=== PATIENT | male | born 1945 | race Caucasian/White ===

== ENCOUNTER 2022-01-12 13:18 | Inpatient (IN) | payer MEDICARE ==
[~2022-01-12] VITALS: Ht 177.8 cm; Wt 60.8 kg
--- NOTE | 2022-01-12 13:54 | NUR ---
[facility] FOR S/P FALL +HEMATOMA RT FOREHEAD AREA. UNWITNESSD FOUND ON THE FLOOR BY STAFF. PT AAOX2, VSS. RR EVEN & UNLABORED. DENIES CP, SOB, DIZZINESS, N/V AT THIS TIME. PT SEEN & EVAL'D BY DR. GR & WILL CONT TO MONITOR.
[2022-01-12 14:00] LABS: BASOPHILS # (AUTO) 0.1 K/uL (0.0-0.2); BASOPHILS % (AUTO) 1.1 % (0.0-2.0); HEMATOCRIT 37 % (39-51); HEMOGLOBIN 11.9 g/dL (13.5-17.5); LYMPHOCYTES # (AUTO) 1.6 K/uL (0.8-4.8); LYMPHOCYTES % (AUTO) 18.8 % (20.0-44.0); MEAN CORPUSCULAR HGB CONC 33 g/dl (31.0-36.0); MEAN CORPUSCULAR VOLUME 89 fL (80-96); MONOCYTES # (AUTO) 0.9 K/uL (0.1-1.30); MONOCYTES % (AUTO) 10.3 % (2.0-12.0); NEUTROPHILS # (AUTO) 5.6 K/uL (1.8-8.9); NEUTROPHILS % (AUTO) 66.8 % (43.0-81.0); PLATELET COUNT (AUTO) 200 K/uL (150-450); RED BLOOD CELL COUNT(AUTO) 4.11 MIL/uL (4.5-6.0); WHITE BLOOD COUNT (AUTO) 8.3 K/uL (4.3-11.0)
[2022-01-12 14:44] LABS: CALCIUM, SERUM 8.5 mg/dL (8.5-10.1); CREATININE 0.8 mg/dL (0.6-1.3); POTASSIUM 3.1 mmol/L (3.5-5.1)
--- NOTE | 2022-01-12 15:54 | NUR ---
[facility] CALLED FOR TRANSPORT ETA 90 MINS.
--- NOTE | 2022-01-12 16:26 | NUR ---
RE[facility]
--- NOTE | 2022-01-12 16:31 | NUR ---
COVID SWAB DONE AND SENT TO LAB
[2022-01-12] MEDS ORDERED: ZINC220C6 PO (16:47)
[2022-01-12] MEDS ORDERED: [UNRECOGNIZED DRUG - CODE] SUBCUT (16:47)
[2022-01-12] MEDS ORDERED: AMIN887L PO (16:47)
[2022-01-12] MEDS ORDERED: MELA3TAB41 PO (16:47)
[2022-01-12] MEDS ORDERED: VANC1PLA9 IV (16:47)
[2022-01-12] MEDS ORDERED: CEFT2FRO2 IV (16:47)
[2022-01-12] MEDS ORDERED: DIVA-78 PO (16:47)
[2022-01-12] MEDS ORDERED: MULT-447 PO (16:47)
[2022-01-12] MEDS ORDERED: ASCO500C17 PO (16:47)
[2022-01-12] MEDS ORDERED: CRAN400C PO (16:47)
[2022-01-12] MEDS ORDERED: DOCU-141 PO (16:47)
[2022-01-12] MEDS ORDERED: AMLO5TAB4 PO (16:47)
[2022-01-12] MEDS ORDERED: Z GUARD REMEDY 4 OZ OINT TP PRN (18:30)
[2022-01-12] MEDS ORDERED: ONDANSETRON HCL/PF 4 MG/2 ML VIAL IVP PRN (18:30)
[2022-01-12] MEDS ORDERED: MAGNESIUM HYDROXIDE 30 ML UDC PO PRN (18:30)
[2022-01-12] MEDS ORDERED: ACETAMINOPHEN 325 MG TABLET PO PRN (18:30)
[2022-01-12] MEDS ORDERED: MAG HYDROX/AL HYDROX/SIMETH 30 ML UDC PO PRN (18:30)
--- NOTE | 2022-01-12 20:45 | NUR ---
REPORT GIVEN TO ASHANTI Galeana RN FOR DARLEEN
--- NOTE | 2022-01-12 20:57 | NUR ---
PT TRANSFERRING TO [facility]. VSS
[2022-01-12] MEDS: DIVALPROEX SODIUM 500 MG TABLET.DR PO SCH (22:14)
--- NOTE | 2022-01-12 22:54 | NUR ---
MS/TELE/RN AT 2100, RECEIVED PATIENT FROM [facility] VIA [facility]. MADE COMFORTABLE IN BED. ON ASSESSMENT, PATIENT WAS AWAKE, ALERT, ORIENTED TO PERSON ONLY, HE CAN STATE HIS NAME AND BIRTHDAY BUT UNABLE TO SAY THE PLACE WHERE HE WAS. PATIENT WAS CONFUSED STATING "I WAS NOT ABLE TO ATTEND THE [place] BECAUSE I WAS IN THE CAGE," HENCE I COULD NOT OBTAIN ADMISSION INFORMATIONS FROM THE PATIENT. PHYSICAL ASSESSMENT WAS DONE, PHOTOS WERE TAKEN ON ABNORMAL SKIN FINDINGS, CLEANED PATIENT AND MADE COMFORTABLE IN BED. TAUGHT THE USE OF CALL LIGHT AND PLACED IT WITHIN REACH, FALL PRECAUTIONS PER PROTOCOL WAS IMPLEMENT. WILL MONITOR.
[2022-01-13 00:52] VITALS: BP 104/55
--- NOTE | 2022-01-13 06:06 | NUR ---
MS/TELE/RN PATIENT IS VERY CONFUSED CONSTANTLY TRYING TO GET OUT OF BED, NOTIFIED DR. MADRID VIA SECURED MESSAGING TO GET ORDER FOR SITTER, PATIENT LYING IN BED AT THIS TIME, APPEARS SLEEPING, APPEARS COMFORTABLE, NO SIGNS OF DISTRESS NOTED, CALL LIGHT IN REACH, WILL CONTINUE TO CLOSELY MONITOR FOR SAFETY.
--- NOTE | 2022-01-13 07:30 | NUR ---
MS RN OPENING NOTES RECEIVED PATIENT AWAKE IN HIS BED COMFORTABLY. PATIENT IS CONFUSED, A/O X 1 (ONLY KNOW HIS NAME & BIRTHDAY). NO SIGNS OF DISTRESS, SOB AND DISCOMFORTED NOTED. RADHA MIDLINE & RFA 20G, PATENT & INTACT. SAFETY MEASURES INITIATED: CALL LIGHT IN REACH, BED ON LOWER POSITION. ALL NEEDS ATTENDED AT THIS TIME. WILL CONTINUE TO MONITOR FOR DARLEEN.
[2022-01-13] MEDS: DOCUSATE SODIUM 100 MG CAPSULE PO SCH (09:22)
[2022-01-13] MEDS: AMLODIPINE BESYLATE 5 MG TABLET PO SCH (09:23)
[2022-01-13 12:12] LABS: BASOPHILS # (AUTO) 0.1 K/uL (0.0-0.2); BASOPHILS % (AUTO) 0.9 % (0.0-2.0); EOSINOPHILS % (AUTO) 4.1 % (0.0-6.0); HEMATOCRIT 35 % (39-51); HEMOGLOBIN 11.7 g/dL (13.5-17.5); LYMPHOCYTES # (AUTO) 1.4 K/uL (0.8-4.8); LYMPHOCYTES % (AUTO) 20.8 % (20.0-44.0); MEAN CORPUSCULAR HGB CONC 33 g/dl (31.0-36.0); MEAN CORPUSCULAR VOLUME 89 fL (80-96); MONOCYTES % (AUTO) 14.1 % (2.0-12.0); NEUTROPHILS # (AUTO) 4.1 K/uL (1.8-8.9); NEUTROPHILS % (AUTO) 60.1 % (43.0-81.0); PLATELET COUNT (AUTO) 196 K/uL (150-450); RED BLOOD CELL COUNT(AUTO) 3.97 MIL/uL (4.5-6.0); WHITE BLOOD COUNT (AUTO) 6.7 K/uL (4.3-11.0)
[2022-01-13 12:34] LABS: CALCIUM, SERUM 8.2 mg/dL (8.5-10.1); CREATININE 0.8 mg/dL (0.6-1.3); MAGNESIUM 2.1 mg/dL (1.8-2.4); PHOSPHORUS 2.7 mg/dL (2.5-4.9); POTASSIUM 3.2 mmol/L (3.5-5.1)
[2022-01-13] MEDS: POTASSIUM CHLORIDE 20 MEQ TAB.PRT.SR PO SCH ×2 (19:03→20:39)
--- NOTE | 2022-01-13 19:36 | NUR ---
MS RN CLOSING NOTES PATIENT AWAKE IN HIS BED COMFORTABLY. PATIENT IS CONFUSED, A/O X 1 (ONLY KNOW HIS NAME & BIRTHDAY). NO SIGNS OF DISTRESS, SOB AND DISCOMFORTED NOTED. RADHA MIDLINE & RFA 20G, PATENT & INTACT. SAFETY MEASURES INITIATED: CALL LIGHT IN REACH, BED ON LOWER POSITION. ALL NEEDS ATTENDED AT THIS TIME. WILL ENDORSE TO INCOMING SHIFT FOR DARLEEN.
--- NOTE | 2022-01-13 19:40 | NUR ---
MS/RN OPENING NOTE RECEIVED PATIENT RESTING AT SIDE OF BED. 1:1 SITTER AT BEDSIDE. PATIENT IS ALERT AND ORIENTED X 1. DENIES PAIN AT THIS TIME. CONTINUES ON ROOM AIR WITH NO S/SX OF RESPIRATORY DISTRESS NOTED. IV ACCESS TO RIGHT UPPER ARM MIDLINE #18G AND RIGHT FOREARM #20G BOTH INTACT, PATENT AND SALINE LOCKED. CONTINUES ON REGULAR DIET WITH NO S/SX OF ASPIRATION NOTED. PATIENT IS AMBULATORY WITH STAND BY ASSIST. CALL LIGHT WITHIN REACH. ASPIRATION, FALL AND SAFETY PRECAUTIONS MAINTAINED. ALL NEEDS ATTENDED TO AT THIS TIME.
[2022-01-13 20:00] VITALS: BP 120/77
[2022-01-13] MEDS: DIVALPROEX SODIUM 500 MG TABLET.DR PO SCH (21:39)
--- NOTE | 2022-01-14 06:40 | NUR ---
MS/RN CLOSING NOTE PATIENT CURRENTLY RESTING IN BED. 1:1 SITTER AT BEDSIDE. PATIENT IS ALERT AND ORIENTED X 1. DENIES PAIN AT THIS TIME. CONTINUES ON ROOM AIR WITH NO S/SX OF RESPIRATORY DISTRESS NOTED. IV ACCESS TO RIGHT UPPER ARM MIDLINE #18G AND RIGHT FOREARM #20G BOTH INTACT, PATENT AND SALINE LOCKED. CONTINUES ON REGULAR DIET WITH NO S/SX OF ASPIRATION NOTED. PATIENT IS AMBULATORY WITH WALKER AND STAND BY ASSIST. CALL LIGHT WITHIN REACH. ASPIRATION, FALL AND SAFETY PRECAUTIONS MAINTAINED. ALL NEEDS ATTENDED TO AT THIS TIME. WILL ENDORSE PLAN OF CARE TO ONCOMING SHIFT RN.
--- NOTE | 2022-01-14 07:00 | NUR ---
MS RN OPENING NOTE PATIENT RESTING IN BED WITH 1:1 SITTER AT BEDSIDE. A/O X 1, TOLERATING WELL ON ROOM AIR WITH NO S/S RESPIRATORY DISTRESS OR SOB NOTED. NO COMPLAINTS OF PAIN OR DISCOMFORT AT THIS TIME. RADHA MIDLINE # 18 G SL AND R FA # 20 G SL CLEAN, INTACT, AND FLUSHING WELL. SAFETY MEASURES IN PLACE: BED IN LOWEST LOCKED POSITION, SIDE RAILS UP X 2, CALL LIGHT WITHIN REACH. WILL CONTINUE TO MONITOR.
[2022-01-14 07:21] LABS: CALCIUM, SERUM 8.7 mg/dL (8.5-10.1); CREATININE 0.9 mg/dL (0.6-1.3); POTASSIUM 4.1 mmol/L (3.5-5.1)
[2022-01-14] MEDS: DOCUSATE SODIUM 100 MG CAPSULE PO SCH (09:01)
[2022-01-14] MEDS: AMLODIPINE BESYLATE 5 MG TABLET PO SCH (09:02)
--- NOTE | 2022-01-14 19:00 | NUR ---
MS RN CLOSING NOTES PATIENT RESTING IN BED WITH 1:1 SITTER AT BEDSIDE. A/O X 1, TOLERATING WELL ON ROOM AIR WITH NO S/S RESPIRATORY DISTRESS OR SOB NOTED. NO COMPLAINTS OF PAIN OR DISCOMFORT AT THIS TIME. RADHA MIDLINE # 18 G SL AND R FA # 20 G SL CLEAN, INTACT, AND FLUSHING WELL. SAFETY MEASURES IN PLACE: BED IN LOWEST LOCKED POSITION, SIDE RAILS UP X 2, CALL LIGHT WITHIN REACH. ALL NEEDS MET. WILL ENDORSE TO ELECTRICIAN'S ASSISTANT FOR DARLEEN.
--- NOTE | 2022-01-14 19:47 | NUR ---
MS RN OPENING NOTES PATIENT RECEIVED IN BED, RESTING COMFORTABLY, WITH SITTER AT BEDSIDE; PATIENT IS CONFUSED, A/OX1, RESPONDS TO NAME; PATIENT BREATHING EVEN AND UNLABORED; TOLERATING ROOM AIR WELL, NO SOB NOTED, NO DISTRESS NOTED AT THIS TIME; RADHA MIDLINE #18 S/L AND R FA #20 S/L NOTED; SAFETY PRECAUTIONS IMPLEMENTED; BED LOCKED IN LOW POSITION; SIDE RAILSX2; WILL CONT TO MONITOR AND CONT PLAN OF CARE
[2022-01-14 20:00] VITALS: BP 140/66
[2022-01-14] MEDS: DIVALPROEX SODIUM 500 MG TABLET.DR PO SCH (21:04)
--- NOTE | 2022-01-15 03:57 | NUR ---
MS RN NOTES PATIENT AMBULATING BACK TO BED FROM RESTROOM WITH SITTER; PATIENT LOST BALANCE AND SITTER HELPED BREAK THE FALL; PATIENT FELL ON BUTTOCKS, SKIN ASSESSMENT DONE, NO WOUNDS/BRUISES NOTED; CHARGE NURSE AWARE, MADE AWARE, NURSING CRAY FISHING HAND ALSO INFORMED; INCIDENT REPORT FILED; PATIENT BACK IN BED, RESTING COMFORTABLY; WILL CONT TO MONITOR
--- NOTE | 2022-01-15 06:49 | NUR ---
MS RN CLOSING NOTES PATIENT RESTING IN BED, RESTING COMFORTABLY, WITH SITTER AT BEDSIDE; PATIENT IS CONFUSED, A/OX1, RESPONDS TO NAME; PATIENT BREATHING EVEN AND UNLABORED; TOLERATING ROOM AIR WELL, NO SOB NOTED, NO DISTRESS NOTED AT THIS TIME; RADHA MIDLINE #18 S/L AND R FA #20 S/L NOTED; ALL NEEDS RENDERED; SAFETY PRECAUTIONS IMPLEMENTED; BED LOCKED IN LOW POSITION; SIDE RAILSX2; WILL ENDORSE DARLEEN TO ONCOMING SHIFT
--- NOTE | 2022-01-15 07:55 | NUR ---
ms rn received patient on bed, sleeping, no distress noted, w/ sitter for safety and comfort,all needs attended.
--- NOTE | 2022-01-15 07:58 | NUR ---
WOUND CARE CONSULT: PT PRESENTS WITH MULTIPLE WOUNDS PRESENT ON ADMISSION INCLUDING SACRAL DEEP TISSUE INJURY (INTACT) WITH SCARRING, REDNESS TO RT LOWER LEG WITH SOME ABRASIONS, SCARS AND CALLUSES TO LOWER EXTREMITIES, SKIN TEARS TO LEFT HAND AND ARM WELL SUTURED LACERATION TO LEFT FOREHEAD WITH SURROUNDING DISCOLORATION, ALL PRESENT ON ADMISSION. RECOMMENDATIONS MADE FOR SKIN PROTECTION AND WOUND CARE. DISCUSSED WITH NURSING STAFF. SITTER AT BEDSIDE. IN AGREEMENT WITH PLAN OF CARE. Addendum: 01/15/22 at 0805 by JAZZMINE TRAVIS WNDNU Amended: Links added. Addendum: 01/15/22 at [address] TRA[address] WND[address] ALLISON AND DR LOVETT NOTIFIED OF SURGICAL AND DPM CONSULT REQUESTS.
[2022-01-15] MEDS: DOCUSATE SODIUM 100 MG CAPSULE PO SCH (09:43)
[2022-01-15 09:44] VITALS: BP 120/60
[2022-01-15] MEDS: AMLODIPINE BESYLATE 5 MG TABLET PO SCH (09:44)
--- NOTE | 2022-01-15 09:50 | NUR ---
ms rn still patient is sleeping, due meds given, tolerated well.
--- NOTE | 2022-01-15 10:00 | NUR ---
ms rn was seen by jefe flores/ buck to be discharge today,all needs attended.
--- NOTE | 2022-01-15 15:00 | NUR ---
ms saini discahrge instructions andpaper done, report given to Chandni saini at [facility].
--- NOTE | 2022-01-15 16:00 | NUR ---
ms nr patient refused to take pictures at both lower extremities.
--- NOTE | 2022-01-15 16:30 | NUR ---
ms rn patient transferred to [facility], via ambulance,all needs attended.
[2022-01-15] MEDS ORDERED: VITAMINS A AND D 56.7 GM TUBE TP SCH (17:00)
== END 2022-01-15 16:30 | DRG 604 ==
LOC: ER 13:26 → MED 20:29
PROVIDERS: ADMIT Internal Medicine; ATTEND Internal Medicine
DX: S00.83XA Contusion of other part of head, initial encounter (principal); G93.41 Metabolic encephalopathy; F07.81 Postconcussional syndrome; R29.6 Repeated falls; R62.7 Adult failure to thrive; Z20.822 Contact with and (suspected) exposure to COVID-19; I10 Essential (primary) hypertension; F29 Unspecified psychosis not due to a substance or known physiological condition; F03.90 Unspecified dementia, unspecified severity, without behavioral disturbance, psychotic disturbance, mood disturbance, and anxiety; Z89.422 Acquired absence of other left toe(s); W01.0XXA Fall on same level from slipping, tripping and stumbling without subsequent striking against object, initial encounter; Y92.9 Unspecified place or not applicable; F39 Unspecified mood [affective] disorder; Z91.018 Allergy to other foods; Z79.899 Other long term (current) drug therapy; Z79.01 Long term (current) use of anticoagulants; F25.9 Schizoaffective disorder, unspecified; D64.9 Anemia, unspecified; L30.9 Dermatitis, unspecified; L85.3 Xerosis cutis; L89.96 Pressure-induced deep tissue damage of unspecified site; M48.00 Spinal stenosis, site unspecified; E87.6 Hypokalemia; L60.3 Nail dystrophy; S51.812A Laceration without foreign body of left forearm, initial encounter; S61.412A Laceration without foreign body of left hand, initial encounter; X58.XXXA Exposure to other specified factors, initial encounter
CPT/HCPCS: 36415; 70450-TC; 72125-TC; 80048-TC; 83735-TC; 84100-TC; 85025-TC; 85730-TC; 87081-TC; 97116-TC; 97530-TC; C9803; G0378

== ENCOUNTER 2022-09-07 14:39 | Inpatient (IN) | payer MEDICARE, OTHER ==
[~2022-09-07] VITALS: Ht 177.8 cm; Wt 62.1 kg
[~2022-09-07 14:39] MED LIST: AMIN887L PO; AMLO5TAB4 PO; ASCO500C17 PO; CEFT2FRO2 IV; CRAN400C PO; DIVA-78 PO; DOCU-141 PO; MELA3TAB41 PO; MULT-447 PO; VANC1PLA9 IV; ZINC220C6 PO; [UNRECOGNIZED DRUG - CODE] SUBCUT
[2022-09-07] MEDS ORDERED: LIDOCAINE 1%-EPI 1:100,000 20 ML VIAL ONE (15:11)
[2022-09-07] MEDS ORDERED: TDAP [DIPH/PERTUSSIS/TET] 0.5 ML VIAL IM ONE ×2 (15:11→15:30)
[2022-09-07] MEDS ORDERED: LORA-258 PO (16:09)
[2022-09-07] MEDS ORDERED: MAGN400O6 PO (16:09)
[2022-09-07] MEDS ORDERED: BISA10SU11 RC (16:09)
[2022-09-07] MEDS ORDERED: DONE5TAB7 PO (16:09)
[2022-09-07] MEDS ORDERED: CHOL200013 PO (16:09)
[2022-09-07] MEDS ORDERED: ACET325T53 PO (16:09)
[2022-09-07 16:52] LABS: BASOPHILS % (AUTO) 0.4 % (0.0-2.0); EOSINOPHILS % (AUTO) 2.3 % (0.0-6.0); HEMATOCRIT 48 % (39-51); HEMOGLOBIN 15.6 g/dL (13.5-17.5); LYMPHOCYTES # (AUTO) 1.5 K/uL (0.8-4.8); LYMPHOCYTES % (AUTO) 15.2 % (20.0-44.0); MEAN CORPUSCULAR HGB CONC 32 g/dl (31.0-36.0); MEAN CORPUSCULAR VOLUME 96 fL (80-96); MONOCYTES # (AUTO) 0.9 K/uL (0.1-1.30); MONOCYTES % (AUTO) 8.6 % (2.0-12.0); NEUTROPHILS # (AUTO) 7.5 K/uL (1.8-8.9); NEUTROPHILS % (AUTO) 73.5 % (43.0-81.0); PLATELET COUNT (AUTO) 158 K/uL (150-450); RED BLOOD CELL COUNT(AUTO) 5.02 MIL/uL (4.5-6.0); WHITE BLOOD COUNT (AUTO) 10.2 K/uL (4.3-11.0)
[2022-09-07 17:31] LABS: ALANINE AMINOTRANSFERASE 23 U/L (12-78); ALKALINE PHOSPHATASE 101 U/L (46-116); BILIRUBIN,DIRECT 0.2 mg/dL (0.0-0.2); BILIRUBIN,TOTAL 0.8 mg/dL (0.2-1.0); CALCIUM, SERUM 9.4 mg/dL (8.5-10.1); CARBON DIOXIDE 28 mmol/L (21-32); CHLORIDE 120 mmol/L (98-107); CREATININE 1.1 mg/dL (0.6-1.3); GLUCOSE 101 mg/dL (74-106); POTASSIUM 4.2 mmol/L (3.5-5.1); TOTAL PROTEIN, SERUM 7.5 g/dL (6.4-8.2); UREA NITROGEN, BLOOD 44 mg/dL (7-18)
[2022-09-07 17:36] LABS: SODIUM SERUM 156 mmol/L (136-145)
[2022-09-07] MEDS ORDERED: IV NS 0.9% 1,000 ML BAG IV ONE (20:30)
[2022-09-07 21:00] VITALS: BP 121/64
[2022-09-07 22:46] LABS: ASPARTATE AMINOTRANSFERASE 19 U/L (15-37)
[2022-09-07] MEDS ORDERED: Z GUARD REMEDY 4 OZ OINT TP PRN (23:00)
[2022-09-07] MEDS ORDERED: ACETAMINOPHEN 325 MG TABLET PO PRN (23:00)
[2022-09-07] MEDS ORDERED: ZOLPIDEM TARTRATE 5 MG TABLET PO PRN (23:00)
[2022-09-07] MEDS ORDERED: MAG HYDROX/AL HYDROX/SIMETH 30 ML UDC PO PRN (23:00)
[2022-09-07] MEDS ORDERED: MAGNESIUM HYDROXIDE 30 ML UDC PO PRN ×2 (23:00)
[2022-09-07] MEDS ORDERED: ONDANSETRON HCL/PF 4 MG/2 ML VIAL IVP PRN (23:00)
[2022-09-07] MEDS: IV D5W 1,000 ML IV PRN (23:53)
[2022-09-08] VITALS: BP 121/59
[2022-09-08 02:31] LABS: BILIRUBIN,URINE NEGATIVE (NEGATIVE); COLOR,URINE YELLOW (YELLOW); LEUKOCYTE ESTERASE ,URINE TRACE (NEGATIVE); NITRITE, URINE NEGATIVE (NEGATIVE); PH,URINE 6.5 (5.0-8.0); PROTEIN,URINE 1+ mg/dl (NEGATIVE); UGLUCOSE NEGATIVE (NEGATIVE)
[2022-09-08 02:52] LABS: BACTERIA,URINE Few /HPF (None Seen); SQUAMOUS EPITHELIAL CELL,UR Moderate /HPF (None Seen)
[2022-09-08 04:00] VITALS: BP 99/60
[2022-09-08] MEDS ORDERED: CEFTRIAXONE 1 G VIAL ONE (04:37)
[2022-09-08] MEDS: CEFTRIAXONE 1 G in IV D5W 50 ML IV SCH (04:45)
[2022-09-08 04:57] VITALS: BP_SYST 103; BP_SYST 93; BP_DIAS 54; BP_DIAS 62
[2022-09-08 05:49] LABS: BASOPHILS % (AUTO) 0.5 % (0.0-2.0); EOSINOPHILS % (AUTO) 3.4 % (0.0-6.0); HEMATOCRIT 43 % (39-51); HEMOGLOBIN 14.1 g/dL (13.5-17.5); LYMPHOCYTES # (AUTO) 1.5 K/uL (0.8-4.8); LYMPHOCYTES % (AUTO) 18.5 % (20.0-44.0); MEAN CORPUSCULAR HGB CONC 33 g/dl (31.0-36.0); MEAN CORPUSCULAR VOLUME 96 fL (80-96); MONOCYTES # (AUTO) 0.8 K/uL (0.1-1.30); MONOCYTES % (AUTO) 9.3 % (2.0-12.0); NEUTROPHILS # (AUTO) 5.6 K/uL (1.8-8.9); NEUTROPHILS % (AUTO) 68.3 % (43.0-81.0); PLATELET COUNT (AUTO) 136 K/uL (150-450); RED BLOOD CELL COUNT(AUTO) 4.47 MIL/uL (4.5-6.0); WHITE BLOOD COUNT (AUTO) 8.2 K/uL (4.3-11.0)
[2022-09-08 05:58] LABS: CALCIUM, SERUM 9.1 mg/dL (8.5-10.1); CARBON DIOXIDE 26 mmol/L (21-32); CHLORIDE 121 mmol/L (98-107); GLUCOSE 115 mg/dL (74-106); MAGNESIUM 2.5 mg/dL (1.8-2.4); PHOSPHORUS 2.8 mg/dL (2.5-4.9); SODIUM SERUM 155 mmol/L (136-145); UREA NITROGEN, BLOOD 36 mg/dL (7-18)
[2022-09-08 06:10] LABS: CHOLESTEROL 111 mg/dL (<200); HDL CHOLESTEROL 34 mg/dL (40-60); LDL 73 mg/dL (0-99); TRIGLYCERIDES 81 mg/dL (30-150)
[2022-09-08 08:00] VITALS: BP 123/65
[2022-09-08] MEDS ORDERED: Medication Not On Formulary EA (Cranberry 450 MG) PO SCH (09:00)
[2022-09-08] MEDS ORDERED: PROSTAT (PYXIS) 30 ML UDC PO SCH (09:00)
[2022-09-08] MEDS ORDERED: AMLODIPINE BESYLATE 5 MG TABLET PO SCH (09:00)
[2022-09-08] MEDS: MULTIVIT W/MINERALS 1 TAB TABLET PO SCH (09:02)
[2022-09-08] MEDS: ZINC SULFATE 220 MG CAPSULE PO SCH (09:02)
[2022-09-08] MEDS: CHOLECALCIFEROL 1,000 UNIT TABLET (VIT D3) PO SCH (09:02)
[2022-09-08] MEDS: ASCORBIC ACID 500 MG TABLET PO SCH (09:03)
[2022-09-08] MEDS: IV D5W 1,000 ML IV PRN (15:23)
[2022-09-08 16:00] VITALS: BP 114/72
[2022-09-08] MEDS: PROSTAT (PYXIS) 30 ML UDC PO SCH (17:45)
[2022-09-08 20:00] VITALS: BP 124/64
[2022-09-08] MEDS: DIVALPROEX SODIUM 500 MG TABLET.DR PO SCH (21:43)
[2022-09-08] MEDS: DONEPEZIL 5 MG TABLET PO SCH (21:43)
[2022-09-09] VITALS: BP 100/50
[2022-09-09 04:00] VITALS: BP 120/61
[2022-09-09] MEDS: CEFTRIAXONE 1 G in IV D5W 50 ML IV SCH (04:34)
[2022-09-09] MEDS: IV D5W 1,000 ML IV PRN ×2 (05:32→22:12)
[2022-09-09 06:31] LABS: BASOPHILS % (AUTO) 0.5 % (0.0-2.0); EOSINOPHILS % (AUTO) 4.3 % (0.0-6.0); HEMATOCRIT 45 % (39-51); HEMOGLOBIN 14.2 g/dL (13.5-17.5); LYMPHOCYTES % (AUTO) 24.3 % (20.0-44.0); MEAN CORPUSCULAR HGB CONC 32 g/dl (31.0-36.0); MEAN CORPUSCULAR VOLUME 99 fL (80-96); MONOCYTES # (AUTO) 0.8 K/uL (0.1-1.30); MONOCYTES % (AUTO) 9.7 % (2.0-12.0); NEUTROPHILS % (AUTO) 61.2 % (43.0-81.0); PLATELET COUNT (AUTO) 110 K/uL (150-450); RED BLOOD CELL COUNT(AUTO) 4.55 MIL/uL (4.5-6.0); WHITE BLOOD COUNT (AUTO) 8.1 K/uL (4.3-11.0)
[2022-09-09 06:35] LABS: CALCIUM, SERUM 8.8 mg/dL (8.5-10.1); CREATININE 0.8 mg/dL (0.6-1.3); MAGNESIUM 2.5 mg/dL (1.8-2.4); PHOSPHORUS 2.4 mg/dL (2.5-4.9); POTASSIUM 3.7 mmol/L (3.5-5.1)
[2022-09-09 08:00] VITALS: BP 121/64
[2022-09-09] MEDS: CHOLECALCIFEROL 1,000 UNIT TABLET (VIT D3) PO SCH (08:19)
[2022-09-09] MEDS: ZINC SULFATE 220 MG CAPSULE PO SCH (08:19)
[2022-09-09] MEDS: ASCORBIC ACID 500 MG TABLET PO SCH (08:19)
[2022-09-09] MEDS: MULTIVIT W/MINERALS 1 TAB TABLET PO SCH (08:19)
[2022-09-09] MEDS: PROSTAT (PYXIS) 30 ML UDC PO SCH ×3 (09:59→17:37)
[2022-09-09 16:00] VITALS: BP 101/50
[2022-09-09] MEDS ORDERED: NEUTRA PHOS 1 POWD.PACKET PO ONE (16:00)
[2022-09-09 20:00] VITALS: BP 90/51
[2022-09-09] MEDS: DIVALPROEX SODIUM 500 MG TABLET.DR PO SCH (21:18)
[2022-09-09] MEDS: DONEPEZIL 5 MG TABLET PO SCH (21:19)
[2022-09-10] VITALS: BP 123/48
[2022-09-10 00:17] VITALS: BP 123/48
[2022-09-10] MEDS: CEFTRIAXONE 1 G in IV D5W 50 ML IV SCH (03:47)
[2022-09-10 04:44] VITALS: BP 131/62
[2022-09-10 08:00] VITALS: BP 106/52
[2022-09-10] MEDS: MULTIVIT W/MINERALS 1 TAB TABLET PO SCH (09:05)
[2022-09-10] MEDS: PROSTAT (PYXIS) 30 ML UDC PO SCH ×2 (09:05→12:59)
[2022-09-10] MEDS: ZINC SULFATE 220 MG CAPSULE PO SCH (09:05)
[2022-09-10] MEDS: CHOLECALCIFEROL 1,000 UNIT TABLET (VIT D3) PO SCH (09:05)
[2022-09-10] MEDS: ASCORBIC ACID 500 MG TABLET PO SCH (09:05)
[2022-09-10 09:56] LABS: CALCIUM, SERUM 8.6 mg/dL (8.5-10.1); CREATININE 0.8 mg/dL (0.6-1.3); POTASSIUM 3.9 mmol/L (3.5-5.1)
[2022-09-10 10:03] LABS: BASOPHILS % (AUTO) 0.5 % (0.0-2.0); EOSINOPHILS % (AUTO) 3.7 % (0.0-6.0); HEMATOCRIT 43 % (39-51); LYMPHOCYTES # (AUTO) 1.9 K/uL (0.8-4.8); LYMPHOCYTES % (AUTO) 25.9 % (20.0-44.0); MEAN CORPUSCULAR HGB CONC 33 g/dl (31.0-36.0); MEAN CORPUSCULAR VOLUME 95 fL (80-96); MONOCYTES # (AUTO) 0.6 K/uL (0.1-1.30); NEUTROPHILS # (AUTO) 4.6 K/uL (1.8-8.9); NEUTROPHILS % (AUTO) 61.9 % (43.0-81.0); PLATELET COUNT (AUTO) 119 K/uL (150-450); RED BLOOD CELL COUNT(AUTO) 4.47 MIL/uL (4.5-6.0); WHITE BLOOD COUNT (AUTO) 7.4 K/uL (4.3-11.0)
[2022-09-10 12:00] VITALS: BP 102/46
[2022-09-10] MEDS: IV D5W 1,000 ML IV PRN (12:58)
[2022-09-10 16:00] VITALS: BP 122/56
== END 2022-09-10 16:20 | DRG 73 ==
LOC: ER 14:40 → TELE 20:37
PROVIDERS: ADMIT Nurse Practitioner Acute Care; ATTEND Nurse Practitioner Acute Care
PROC: 0HQ1XZZ Repair Face Skin, External Approach (ICD-10-PCS; principal; 2022-09-07)
DX: G90.8 Other disorders of autonomic nervous system (principal); G93.41 Metabolic encephalopathy; N17.0 Acute kidney failure with tubular necrosis; E44.0 Moderate protein-calorie malnutrition; N39.0 Urinary tract infection, site not specified; E87.0 Hyperosmolality and hypernatremia; R64 Cachexia; M87.39 Other secondary osteonecrosis, multiple sites; Z66 Do not resuscitate; Z20.822 Contact with and (suspected) exposure to COVID-19; F03.90 Unspecified dementia, unspecified severity, without behavioral disturbance, psychotic disturbance, mood disturbance, and anxiety; I10 Essential (primary) hypertension; F25.9 Schizoaffective disorder, unspecified; R62.7 Adult failure to thrive; Z91.81 History of falling; Z87.440 Personal history of urinary (tract) infections; Z91.018 Allergy to other foods; Z79.899 Other long term (current) drug therapy; W18.30XA Fall on same level, unspecified, initial encounter; Y92.129 Unspecified place in nursing home as the place of occurrence of the external cause; R29.6 Repeated falls; B96.89 Other specified bacterial agents as the cause of diseases classified elsewhere; E83.39 Other disorders of phosphorus metabolism; E88.09 Other disorders of plasma-protein metabolism, not elsewhere classified; R26.9 Unspecified abnormalities of gait and mobility; Z89.422 Acquired absence of other left toe(s); Z87.39 Personal history of other diseases of the musculoskeletal system and connective tissue; S01.112A Laceration without foreign body of left eyelid and periocular area, initial encounter
CPT/HCPCS: 36415; 70450-TC; 71045-TC; 72125-TC; 72170-TC; 73080-TC; 80048-TC; 80061-TC; 80076-TC; 81001; 82550-TC; 83605-TC; 83735-TC; 84100-TC; 84443-TC; 84484-TC; 85025-TC; 85730-TC; 87081-TC; 87086-TC; 90715; 93307-TC; 97110-TC; 97112-TC; 97530-TC; A4349; A6403; C9803; G0378; J0696; J3490; J7060; J7070